=== PATIENT | female | born 1970 | race Caucasian/White ===

== ENCOUNTER → 2019-07-21 | Outpatient (CLI) | payer OTHER ==
[~2019-07-21] MED LIST: CETI10 PO; CITA20 PO; ERGO400 PO; MULVITB&C PO; [UNRECOGNIZED DRUG - OTHER] PO
== END | disposition home or self-care (01) ==
LOC: LAB 18:00 → LAB SHORT 18:00
DX: N39.0 Urinary tract infection, site not specified (principal)
CPT/HCPCS: 87086